=== PATIENT | female | born 1950 | race Asian ===

== ENCOUNTER 2018-08-16 19:01 | Emergency (ER) | payer MEDICARE, OTHER ==
[~2018-08-16] VITALS: Ht 152.4 cm; Wt 48.2 kg
[~2018-08-16 19:01] MED LIST: GLIM2 PO; HYDR25TA PO; METF500T7 PO
[2018-08-16 19:18] LABS: GLUCOSE,POINT OF CARE 118 MG/DL (70-110)
[2018-08-16] MEDS ORDERED: DIPH25 PO (19:18)
[2018-08-16] MEDS ORDERED: GABA-531 PO (19:18)
[2018-08-16] MEDS ORDERED: GLIM4 PO (19:18)
[2018-08-16] MEDS ORDERED: PANT40TA25 PO (19:18)
[2018-08-16] MEDS ORDERED: METF-445 PO (19:18)
[2018-08-16] MEDS ORDERED: LOSA25TA41 PO (19:18)
[2018-08-16] MEDS ORDERED: VITAD1000 PO (19:18)
[2018-08-16 21:15] VITALS: BP 158/92
== END 2018-08-16 21:46 | disposition home or self-care (01) ==
LOC: EMS 19:03
DX: J40 Bronchitis, not specified as acute or chronic (principal); E11.9 Type 2 diabetes mellitus without complications; I10 Essential (primary) hypertension; K21.9 Gastro-esophageal reflux disease without esophagitis; Z79.899 Other long term (current) drug therapy

== ENCOUNTER 2020-05-17 06:41 | Emergency (ER) | payer MEDICARE, OTHER ==
[~2020-05-17] VITALS: Ht 152.4 cm; Wt 45.5 kg
[~2020-05-17 06:41] MED LIST changes: +CHOL100018 PO; +DIPH25 PO; +GABA-1181 PO; -GLIM2 PO; +GLIM4 PO; -HYDR25TA PO; +LOSA25TA21 PO; +METF-445 PO; -METF500T7 PO; +PANT-31 PO
[2020-05-17 06:59] LABS: GLUCOSE,POINT OF CARE 139 MG/DL (70-110)
[2020-05-17 07:24] LABS: APPEARANCE,URINE CLEAR (CLEAR); BILIRUBIN,URINE NEGATIVE (NEGATIVE); GLUCOSE, URINE (UA) NEGATIVE (NEGATIVE); KETONES,URINE NEGATIVE (NEGATIVE); LEUKOCYTE ESTERASE ,URINE MODERATE (NEGATIVE); NITRATE,URINE NEGATIVE (NEGATIVE); OCCULT BLOOD,URINE TRACE (NEGATIVE); PROTEIN,URINE NEGATIVE (NEGATIVE); UROBILINOGEN,URINE 0.2 mg/dL (<=1.0)
[2020-05-17] MEDS ORDERED: CefTRIAXone SODIUM 1 GM/VIAL IM ONE (08:00)
[2020-05-17] MEDS ORDERED: LIDOCAINE/PF 1% 2 ML VIAL IM ONE (08:00)
[2020-05-17 08:05] LABS: BACTERIA,URINE None Seen /HPF (None Seen); RBC,URINE None Seen /HPF (0-2); SQUAMOUS EPITHELIAL CELL,UR Few /LPF (None Seen)
[2020-05-17 08:38] VITALS: BP 136/73
== END 2020-05-17 08:50 | disposition home or self-care (01) ==
LOC: EMS 06:42
DX: N39.0 Urinary tract infection, site not specified (principal); I10 Essential (primary) hypertension; E11.9 Type 2 diabetes mellitus without complications; K21.9 Gastro-esophageal reflux disease without esophagitis; Z79.899 Other long term (current) drug therapy; Z79.84 Long term (current) use of oral hypoglycemic drugs
CPT/HCPCS: 81001; 82962; 87077; 87086; 96372; 99283; J0696; J3490; 82948